=== PATIENT | female | born 1950 | race Asian ===

== ENCOUNTER 2018-05-11 04:56 | Day surgery (SDC) | payer OTHER ==
[2018-05-10 15:11] VITALS: BMI 34.0
[2018-05-11] MEDS ORDERED: PROPOFOL 20 ML ONE ×2 (07:47)
[2018-05-11 08:30] VITALS: TEMP 98.1
[2018-05-11 09:41] VITALS: BP 142/57; PULSE 64
--- NOTE | 2018-05-12 16:30 | PATH ---
Surgical Pathology Report Patient Name: EVELINA HAILE [facility]. Rec. #: [id number] /Age/Gender: 1950 (Age: 68) / F Account: [id number] Location: U-ENDOSCOPY Taken: 05/11/2018 Received: 05/11/2018 Reported: 05/12/2018 Physicians: Cecilia Robbins M.D. Specimen(s) Received A: BX MID TRANSVERSE COLON POLYP B: POLYP SIGMOID Clinical History History of polyps Postoperative diagnosis: Colon polyps, diverticulosis, hemorrhoids Final Diagnosis A. MID TRANSVERSE COLON, POLYP, POLYPECTOMY: HYPERPLASTIC POLYP. B. SIGMOID COLON, POLYP, POLYPECTOMY: HYPERPLASTIC POLYP. Electronically Signed Marla Perez M.D. Gross Description A. Received in formalin, labeled "polyp mid transverse colon" is a bae, irregular portion of soft tissue measuring 0.4 cm. in greatest dimension. The specimen is submitted in toto in one cassette. B. Received in formalin, labeled "polyp sigmoid" are 2 bae, irregular portions of soft tissue measuring 0.2 and 0.5 cm. in greatest dimension. The specimens are submitted in toto in one cassette. /05/11/2018 saudi05/11/2018
== END 2018-05-11 09:41 | disposition home or self-care (01) ==
LOC: JASU-ENDO 04:56
PROVIDERS: ATTEND Internal Medicine Gastroenterology
PROC: 0DBL8ZX Excision of Transverse Colon, Via Natural or Artificial Opening Endoscopic, Diagnostic (ICD-10-PCS; 2018-05-11)
PROC: 0DBN8ZX Excision of Sigmoid Colon, Via Natural or Artificial Opening Endoscopic, Diagnostic (ICD-10-PCS; principal; 2018-05-11 08:00)
DX: Z86.010 Personal history of colon polyps (principal); Z01.818 Encounter for other preprocedural examination; K63.5 Polyp of colon; K57.30 Diverticulosis of large intestine without perforation or abscess without bleeding; K64.8 Other hemorrhoids
CPT/HCPCS: 82962; 88305-TC

== ENCOUNTER 2020-05-28 05:17 | Day surgery (SDC) | payer OTHER ==
[2020-05-24 14:13] VITALS: BMI 30.9
[~2020-05-28 05:17] MED LIST: BUPIVACAINE HCL/PF 0.5% (5MG/ML) 10 ML VIAL IJ ONE
[2020-05-28] MEDS ORDERED: PROPOFOL 20 ML ONE (08:33)
[2020-05-28] MEDS ORDERED: DEXAMETHASONE SOD PHOSPHATE 4 MG/1 ML VIAL ONE (08:33)
[2020-05-28] MEDS ORDERED: LIDOCAINE HCL/PF 2% SDV 5ML VIAL ONE (08:33)
--- NOTE | 2020-05-28 09:00 | HP ---
History & Physical Update - History History: No Change - Physical Physical: No Change - Assessment Assessment: No Change - Plan Plan: No Change (for repair incarcerated ventral hernia; possible mesh; r/b/ t/a's d/w the patient and informed consent obtained.)
[2020-05-28] MEDS ORDERED: MIDAZOLAM HCL 2 MG/2 ML SINGLE DOSE VIAL ONE (09:40)
[2020-05-28] MEDS ORDERED: ceFAZolin SODIUM 1 GM VIAL IVPB ONE (10:05)
[2020-05-28] MEDS ORDERED: ceFAZolin SODIUM 1 GM VIAL ONE (10:11)
[2020-05-28] MEDS ORDERED: EPHEDRINE SULFATE/0.9% NACL/PF 50 MG/10 ML SYRINGE NR ONE (10:14)
[2020-05-28] MEDS ORDERED: BUPIVACAINE HCL/PF 0.5% (5MG/ML) 10 ML VIAL IJ ONE (10:40)
[2020-05-28] MEDS ORDERED: ROCURONIUM BROMIDE 50 MG/5 ML SYRINGE ONE (10:55)
[2020-05-28] MEDS ORDERED: GLYCOPYRROLATE 0.2 MG/1 ML VIAL ONE (11:37)
[2020-05-28] MEDS ORDERED: NEOSTIGMINE METHYLSULFATE 0.5 MG/ML - 10 ML MDV ONE (11:37)
--- NOTE | 2020-05-28 11:58 | OP ---
Operative Note - Note: Operative Date: 05/28/20 Pre-Operative Diagnosis: incarcerated ventral hernia Operation: repair incarcerated vental hernia and umbilical hernia with mesh Findings: incarcerated ventral hernia w/omentum and umbilical hernia Post-Operative Diagnosis: Other (same plus umbilical hernia) Surgeon: Parveen Price Staker Surveying: Chris Delatorre Anesthesiologist/USER EXPERIENCE RESEARCHER: Steve Warren Anesthesia: General Specimens Removed: hernia sac and fat and omentum Estimated Blood Loss (mls): 20
--- NOTE | 2020-05-28 12:06 | SURG ---
Surgery Maitre D Note Maitre D: Chris Delatorre PA-C Date of Service: 05/28/20 Diagnosis: incarcerated ventral hernia Procedure: repair incarcerated vental hernia and umbilical hernia with mesh I was present for the entirety of the operative procedure. For further detail, please refer to operative report.
[2020-05-28] MEDS ORDERED: ONDANSETRON 4 MG/2 ML VIAL IVPUSH PRN (12:30)
[2020-05-28] MEDS ORDERED: oxyCODONE HCL 5 MG TABLET PO PRN ×2 (12:30)
[2020-05-28] MEDS ORDERED: LACTATED RINGERS SOLUTION 1,000 ML IV SCH (12:30)
[2020-05-28 18:33] VITALS: BP 138/63; PULSE 71; TEMP 97.1
--- NOTE | 2020-05-29 16:54 | PATH ---
Surgical Pathology Report Patient Name: EVELINA HAILE [facility]. Rec. #: [id number] /Age/Gender: 1950 (Age: 70) / F Account: [id number] Location: [facility] SURGICAL Taken: 05/28/2020 Received: 05/28/2020 Reported: 05/29/2020 Physicians: Parveen Price MD Specimen(s) Received HERNIA SAC AND FAT Clinical History Incarcerated ventral hernia Final Diagnosis HERNIA SAC AND FAT, VENTRAL HERNIA REPAIR: FIBROMEMBRANOUS TISSUE COMPATIBLE WITH HERNIA SAC AND BENIGN FIBROADIPOSE TISSUE. Electronically Signed Marla Perez M.D. Gross Description Received in formalin labeled "hernia sac and fat," is a 10.5 x 9.5 x 1.7 cm aggregate of bae-red, hemorrhagic portions of fibromembranous tissue with attached fat, consistent with a hernia. External Relations Manager sections are submitted in one cassette. /05/28/2020 saudi/05/28/2020
--- NOTE | 2020-05-30 11:14 | OP ---
DATE OF OPERATION: 05/28/2020 PREOPERATIVE DIAGNOSIS: Incarcerated ventral hernia. POSTOPERATIVE DIAGNOSIS: Incarcerated ventral hernia, umbilical hernia. PROCEDURE: Repair incarcerated ventral hernia and umbilical hernia with mesh. SURGEON: Parveen Price MD DAMAGE INSIDE ADJUSTER: Chris Delatorre PA-C ANESTHESIA: General. OPERATIVE FINDINGS: There was an incarcerated ventral hernia with a defect of approximately 4 cm containing incarcerated omentum and preperitoneal fat and an umbilical hernia separate from that defect with a size of approximately 2 cm, and the rest of the findings were unremarkable. PROCEDURE: The patient was placed on the operating table in the supine position. After the induction of general anesthesia, the patient's abdomen was prepped with ChloraPrep and draped in sterile fashion. A timeout was taken. An incision was made over the palpable incarcerated ventral hernia and taken down through skin and subcutaneous tissue. Blunt dissection was used to mobilize the sac and the sac was opened and the previously noted findings were observed. Incarcerated omentum was divided between Binta clamps and the pedicles ligated with 0 Vicryl. In addition, the sac was excised using electrocautery as well as any incarcerated preperitoneal fat. Upon further inspection there was noted to be a defect in the umbilicus and then the skin incision was extended around and slightly below the umbilicus, and the 2 hernias connected by incising the fascial bridge between them. The subcutaneous tissue was then mobilized off the fascia circumferentially using electrocautery and the underside of the fascial defect was found to be free. Next, a piece of Sepramesh IP was fashioned into the defect and anchored in place as an underlay with continuous 0 Prolene. Hemostasis was checked for and noted to be good and then the wound was copiously irrigated with sterile saline. Hemostasis was again verified and then redundant sac was closed over the mesh using interrupted 2-0 Vicryl sutures. The deep dermis was then reapproximated with interrupted 3-0 Vicryl after the deep subcutaneous fat was reapproximated with interrupted 2-0 Vicryl. The skin edges were reapproximated with surgical colton. Dry sterile dressings were placed and the procedure terminated at this point and the patient transferred to the postanesthesia care unit in stable condition awake and alert. ESTIMATED BLOOD LOSS: 20 mL REPLACEMENTS: Crystalloid. DRAINS: None. SPECIMEN: Hernia sac and fat and omentum to Pathology. I, Parveen Price, was physically present in the operating room from the time the patient was placed on the operating table until she was transferred to the postanesthesia care unit in my accompaniment. MD DOUGIE Sadler/[id number] MTDD
== END 2020-05-28 18:15 | disposition home or self-care (01) ==
LOC: JASU-SURG 05:17
PROVIDERS: ATTEND Surgery
PROC: 0WUF0JZ Supplement Abdominal Wall with Synthetic Substitute, Open Approach (ICD-10-PCS; 2020-05-28)
PROC: 0WUF0JZ Supplement Abdominal Wall with Synthetic Substitute, Open Approach (ICD-10-PCS; principal; 2020-05-28 09:30)
DX: K43.6 Other and unspecified ventral hernia with obstruction, without gangrene (principal); K42.9 Umbilical hernia without obstruction or gangrene
CPT/HCPCS: 82962; 88302-TC; 94760